=== PATIENT | female | born 1985 ===

== ENCOUNTER 2018-09-07 18:44 | Emergency (ER) | payer SELFPAY ==
[2018-09-07 19:59] LABS: BASO % 0.6 % (0.0-2.0); EOS # 0.1 K/uL (0.0-0.7); EOS % 1.7 % (0.0-4.0); HEMOGLOBIN 13.3 g/dL (12.0-16.0); LYMPH # 3.2 K/uL (1.0-4.3); MEAN CELL VOLUME 91.6 fl (81.0-99.0); MEAN CORPUSCULAR HGB CONC 32.8 g/dL (33.0-37.0); MEAN PLATELET VOLUME 8.4 fl (7.2-11.7); MONO # 0.6 K/uL (0.0-0.8); MONO % 8.9 % (0.0-10.0); NEUT # 2.4 K/uL (1.8-7.0); NEUT % 37.8 % (50.0-75.0); NRBC % 0.2 % (0.0-0.0); RBC 4.44 Mil/uL (3.80-5.20); RED CELL DISTRIBUTION WIDTH 13.2 % (11.5-14.5); WHITE BLOOD COUNT 6.2 K/uL (4.8-10.8)
[2018-09-07 20:05] LABS: URINE BILIRUBIN NEGATIVE (NEGATIVE); URINE BLOOD NEGATIVE (NEGATIVE); URINE COLOR YELLOW (YELLOW); URINE GLUCOSE (UA) NEG (Normal); URINE LEUKOCYTE ESTERASE NEG Leu/uL (Negative); URINE PROTEIN NEGATIVE (NEGATIVE); URINE UROBILINOGEN 0.2-1.0 mg/dL (0.2-1.0)
[2018-09-07 20:08] LABS: URINE CLARITY Clear (Clear)
[2018-09-07 20:09] LABS: ALB/GLOB RATIO 1.3 (1.0-2.1); ALBUMIN 4.4 g/dL (3.5-5.0); ALT/SGPT 30 U/L (9-52); AST/SGOT 23 U/L (14-36); BLOOD UREA NITROGEN 11 mg/dl (7-17); CALCIUM 9.1 mg/dL (8.4-10.2); GFR NON-AFRICAN AMERICAN > 60; LIPASE 124 U/L (23-300)
--- NOTE | 2018-09-07 20:51 | ED PDOC ---
HPI: Abdomen Time Seen by Provider: 09/07/18 19:14 Chief Complaint (Nursing): Abdominal Pain Chief Complaint (Provider): Abdominal and Left Flank Pain History Per: Patient History/Exam Limitations: no limitations Onset/Duration Of Symptoms: Intermittent Episodes, Worse Since (last 24 hours) Current Symptoms Are (Timing): Still Present Additional Complaint(s): 33 year old female with no pmhx presents to the ED for one month of intermittent abdominal and left flank pain associated with nausea, worsening over the last 24 hours. Patient reports taking Ibuprofen with no improvement of her 7/10 pain. Otherwise denies vomiting, diarrhea, vaginal discharge, vaginal bleeding, and urinary symptoms. PMD: [facility] Past Medical History Reviewed: Historical Data Vital Signs: Last Vital Signs Temp 98 F 09/07/18 18:52 Pulse 57 L 09/07/18 18:52 Resp 18 09/07/18 18:52 BP 123/55 L 09/07/18 18:52 Pulse Ox 100 09/07/18 18:52 - Medical History PMH: No Chronic Diseases - Surgical History Surgical History: - Family History Family History: States: Unknown Family Hx - Social History Current smoker - smoking cessation education provided: No Alcohol: None Drugs: Denies - Home Medications Home Medications: Ambulatory Orders Medication Instructions Recorded Naproxen [Naprosyn Tab] 250 mg PO Q12 #20 tab 09/07/18 - Allergies Allergies/Adverse Reactions: Allergies Allergy/AdvReac Type Severity Reaction Status Date / Time PORK Allergy RASH Verified 09/07/18 18:52 Review of Systems ROS Statement: Except As Marked, All Systems Reviewed And Found Negative Gastrointestinal: Positive for: Nausea, Abdominal Pain. Negative for: Vomiting, Diarrhea Genitourinary Female: Negative for: Dysuria, Frequency, Vaginal Discharge, Vaginal Bleeding Musculoskeletal: Positive for: Other (left flank pain) Physical Exam - Reviewed Nursing Documentation Reviewed: Yes Vital Signs Reviewed: Yes - Physical Exam Appears: Positive for: No Acute Distress Head Exam: Positive for: ATRAUMATIC, NORMOCEPHALIC Skin: Positive for: Normal Color, Warm, Dry Eye Exam: Positive for: Normal appearance Neck: Positive for: Normal, Painless ROM, Supple Cardiovascular/Chest: Positive for: Regular Rate, Rhythm Respiratory: Positive for: Normal Breath Sounds. Negative for: Respiratory Distress Gastrointestinal/Abdominal: Positive for: Normal Exam, Soft, Tenderness (mild lower abdominal) Back: Positive for: L CVA Tenderness (mild). Negative for: R CVA Tenderness Extremity: Positive for: Normal ROM Neurologic/Psych: Positive for: Alert, Oriented (x3) - Laboratory Results Result Diagrams: 09/07/18 19:54 09/07/18 19:54 - ECG O2 Sat by Pulse Oximetry: 100 (RA) Pulse Ox Interpretation: Normal Medical Decision Making Medical Decision Making: Time: 1938 Initial Impression: 33 year old female with abdominal and flank pain Initial Plan: --CMP --Lipase chemistry --U-preg --U-dip --CBC with differential --Urinalysis --Transvag US --pt declined analgesic 2031 US Impression: 1. Left ovarian cyst. 2. No torsion. 2035 Patient is stable for discharge with diagnosis of ovarian cyst. Scribe Attestation: Documented by Meagan Jo acting as a scribe for Zenon Gray MD. Provider Scribe Attestation: All medical record entries made by the Scribe were at my direction and personally dictated by me. I have reviewed the chart and agree that the record accurately reflects my personal performance of the history, physical exam, medical decision making, and the department course for this patient. I have also personally directed, reviewed, and agree with the discharge instructions and disposition. Disposition - Clinical Impression Clinical Impression: Ovarian cyst Counseled Patient/Family Regarding: Studies Performed, Diagnosis, Need For Followup - Disposition Referrals: [facility] [Outside] Disposition: Routine/Home Disposition Time: 21:37 Condition: STABLE Prescriptions: Naproxen [Naprosyn Tab] 250 mg PO Q12 #20 tab Instructions: Ovarian Cysts Forms: [employer] ([employer]) Print Language: SWEDISH
[2018-09-07 21:54] VITALS: BP 109/67; PULSE 62; RESP 16; TEMP 98.3; O2SAT 98
--- NOTE | 2018-09-08 14:14 | US ---
Date of service: 09/07/2018 HISTORY: r/o ov cyst/torsion COMPARISON: Transvaginal pelvic ultrasound performed 11/17/15 TECHNIQUE: Transvaginal pelvic ultrasound FINDINGS: UTERUS: Measures 7.1 x 4.4 x 3.8 cm. Uterus appears retroverted on provided images. ENDOMETRIUM: Measures 9 mm in diameter. CERVIX: Measures approximately 1.9 cm in length. RIGHT OVARY: Measures 2.3 x 1.8 x 1.9 cm. Blood flow is demonstrated. LEFT OVARY: Measures 3.7 x 2.5 x 2.5 cm. Blood flow is demonstrated. 2.4 cm follicle. FREE FLUID: No significant free fluid noted. OTHER FINDINGS: None. IMPRESSION: No acute findings identified. Preliminary impression was provided by [employer].
== END 2018-09-07 21:53 | disposition home or self-care (01) ==
LOC: H.ER 18:44
DX: N83.202 Unspecified ovarian cyst, left side (principal)

== ENCOUNTER 2018-10-07 16:40 | Emergency (ER) | payer SELFPAY ==
[2018-10-07 17:16] VITALS: BP 107/66; PULSE 67; RESP 18; TEMP 97.8; O2SAT 98
--- NOTE | 2018-10-07 19:50 | ED PDOC ---
HPI: Allergic Reaction Time Seen by Provider: 10/07/18 19:14 Chief Complaint (Nursing): Allergic Reaction Chief Complaint (Provider): Allergic reaction History Per: Patient History/Exam Limitations: no limitations Onset/Duration Of Symptoms: Hrs Current Symptoms Are (Timing): Still Present Home/EMS Treatment: None Additional Complaint(s): 33 yo female with no medical problems presents for evaluation of facial swelling, itchiness and rash after eating shrimp. Pt states that she had similar reaction in the past to pork. Pt denies SOB or itchiness/swelling in the throat. Past Medical History Reviewed: Historical Data, Nursing Documentation, Vital Signs Vital Signs: Last Vital Signs Temp 97.8 F 10/07/18 17:12 Pulse 67 10/07/18 17:12 Resp 18 10/07/18 17:12 BP 107/66 10/07/18 17:12 Pulse Ox 98 10/07/18 17:12 - Medical History PMH: No Chronic Diseases - Surgical History Surgical History: - Family History Family History: States: Unknown Family Hx - Living Arrangements Living Arrangements: With Family - Social History Current smoker - smoking cessation education provided: No Alcohol: None Drugs: Denies - Home Medications Home Medications: Ambulatory Orders Medication Instructions Recorded Naproxen [Naprosyn Tab] 250 mg PO Q12 #20 tab 09/07/18 Famotidine [Pepcid] 20 mg PO DAILY #5 tab 10/07/18 predniSONE [predniSONE Tab] 20 mg PO DAILY #9 tab 10/07/18 - Allergies Allergies/Adverse Reactions: Allergies Allergy/AdvReac Type Severity Reaction Status Date / Time PORK Allergy RASH Verified 10/07/18 17:16 Review of Systems ROS Statement: Except As Marked, All Systems Reviewed And Found Negative Constitutional: Negative for: Fever, Chills ENT: Negative for: Throat Pain, Throat Swelling Skin: Positive for: Rash Physical Exam - Reviewed Nursing Documentation Reviewed: Yes Vital Signs Reviewed: Yes - Physical Exam Appears: Positive for: Well, Non-toxic, No Acute Distress Head Exam: Positive for: ATRAUMATIC, NORMAL INSPECTION, NORMOCEPHALIC Skin: Positive for: Warm, Rash (Erythematous on face, edema has resolved ). Negative for: Normal Color Eye Exam: Positive for: Normal appearance ENT: Positive for: Normal ENT Inspection Neck: Positive for: Normal, Painless ROM Cardiovascular/Chest: Positive for: Regular Rate, Rhythm Respiratory: Positive for: CNT, Normal Breath Sounds Back: Positive for: Normal Inspection Extremity: Positive for: Normal ROM Neurologic/Psych: Positive for: Alert, Oriented - ECG O2 Sat by Pulse Oximetry: 98 Pulse Ox Interpretation: Normal Disposition - Clinical Impression Clinical Impression: Allergic reaction - Patient ED Disposition Is Patient to be Admitted: No Counseled Patient/Family Regarding: Diagnosis, Need For Followup, Rx Given - Disposition Referrals: [facility] [Outside] Disposition: Routine/Home Disposition Time: 20:03 Condition: GOOD Prescriptions: Famotidine [Pepcid] 20 mg PO DAILY #5 tab predniSONE [predniSONE Tab] 20 mg PO DAILY #9 tab Instructions: Allergy Skin Testing Forms: [employer] (Belgian) Print Language: HAITIAN - POA Present On Arrival: None
== END 2018-10-07 20:11 | disposition home or self-care (01) ==
LOC: H.ER 16:40
DX: T78.40XA Allergy, unspecified, initial encounter (principal)